=== PATIENT | female | born 1975 | race African-American/Black ===

== ENCOUNTER 2019-12-03 02:45 | Emergency (ER) | payer OTHER ==
[~2019-12-03] VITALS: Ht 165.1 cm; Wt 81.7 kg
[2019-12-03 06:04] VITALS: BP 103/68
== END 2019-12-03 06:06 | disposition home or self-care (01) ==
LOC: ER 02:45
DX: F44.5 Conversion disorder with seizures or convulsions (principal); Z85.841 Personal history of malignant neoplasm of brain; Z88.0 Allergy status to penicillin; R45.6 Violent behavior